=== PATIENT | male | born 1960 | race Asian ===

== ENCOUNTER 2024-08-22 17:29 | Emergency (ER) | payer OTHER ==
[~2024-08-22] VITALS: Ht 160 cm; Wt 59.0 kg
[2024-08-22 17:34] VITALS: TEMP 98.4
[2024-08-22 22:11] VITALS: BP 113/68; O2SAT 98
== END 2024-08-22 22:12 | disposition home or self-care (01) ==
LOC: EDBD 17:31 → ER 17:31
DX: M25.512 Pain in left shoulder (principal); I10 Essential (primary) hypertension
CPT/HCPCS: 73030-TC